=== PATIENT | female | born 1935 | race Caucasian/White ===

== ENCOUNTER 2019-03-17 17:45 | Emergency (ER) | payer MEDICARE, OTHER ==
[~2019-03-17] VITALS: Ht 175.3 cm; Wt 136.1 kg
[~2019-03-17 17:45] MED LIST: ALPR.25 PO; ALPR.5 PO; ASPI325 PO; ASPI81EC PO; Aspirin EC325 MG PO; BISO5 PO; BUSP15 PO; BUSP5 PO; CALCA500CH PO; CHOL10002 PO; COUGH MM; COUMADIN; CYCL10 PO; DIAZ2; DIAZ2 PO; FISH1000 PO; HYDACE10 PO; HYDACE5; HYDACE5 PO; HYDACE5325 PO; HYDMOR2 PO; HYDR1TAB94 PO; LEVOXYL PO; LEVSOD100 PO; LEVSOD200 PO; LOPE2C PO; LOSA25 PO; LOSA50 PO; MELO7.5 PO; METPRE4DP PO; MULVITMINF; NYST100P TOP; OMEPRAZOLE MAGN20 MG PO; OXYACE5T PO; POLY500 PO; PRED20 PO; PROP30DR BOTHEYES; Percocet 10-321 EACH PO; RABE20; Synthroid/Levo0.2 MG PO; THYR60; TOLT2 PO; TRIHYD253A PO; TRIHYD253B PO; TRIHYD5075 PO; VENL25; VENL37.5 PO; VENL75; VENL75ER PO; VIT D 3 PO; VITAMIN D-32000 UNIT PO; Venlafaxine HCl75 MG PO; WARF1 PO; WARF5 PO; XARELTO20 MG PO
[2019-03-17] MEDS ORDERED: Synthroid200 MCG PO (19:26)
[2019-03-17] MEDS ORDERED: TOLT2ER PO (19:27)
[2019-03-17] MEDS ORDERED: LOSA50 PO (19:27)
[2019-03-17] MEDS ORDERED: Zocor20 MG PO (19:27)
[2019-03-17] MEDS ORDERED: VENL75ER PO (19:27)
[2019-03-17] MEDS ORDERED: Aspir 8181 MG PO (19:28)
[2019-03-17] MEDS ORDERED: WARF1 PO (19:28)
[2019-03-17] MEDS ORDERED: B Complex-Foli1 EACH PO (19:28)
[2019-03-17] MEDS ORDERED: OMEPRAZOLE20 MG PO (19:28)
[2019-03-17] MEDS ORDERED: Thera Tears15 ML BOTHEYES (19:29)
[2019-03-17] MEDS ORDERED: ALBU90OI INH (20:03)
[2019-03-17] MEDS ORDERED: Prednisone20 MG PO (20:03)
== END 2019-03-17 20:17 | disposition home or self-care (01) ==
LOC: ER 17:45
DX: J20.9 Acute bronchitis, unspecified (principal); I48.91 Unspecified atrial fibrillation; K21.9 Gastro-esophageal reflux disease without esophagitis; I10 Essential (primary) hypertension; Z86.718 Personal history of other venous thrombosis and embolism; Z86.711 Personal history of pulmonary embolism; Z79.899 Other long term (current) drug therapy; Z79.01 Long term (current) use of anticoagulants; Z79.82 Long term (current) use of aspirin
CPT/HCPCS: 71046; 99283-25; J7512

== ENCOUNTER 2019-05-17 17:48 | Emergency (ER) | payer MEDICARE, OTHER ==
[~2019-05-17] VITALS: Ht 172.7 cm; Wt 136.1 kg
[~2019-05-17 17:48] MED LIST changes: +ALBU90OI INH; +Aspir 8181 MG PO; +B Complex-Foli1 EACH PO; +OMEPRAZOLE20 MG PO; +Prednisone20 MG PO; +Synthroid200 MCG PO; +TOLT2ER PO; +Thera Tears15 ML BOTHEYES; +Zocor20 MG PO
[2019-05-17] MEDS ORDERED: Percocet 5-3251 EACH PO (20:21)
== END 2019-05-17 20:37 | disposition home or self-care (01) ==
LOC: ER 17:48
DX: S82.51XA Displaced fracture of medial malleolus of right tibia, initial encounter for closed fracture (principal); S80.02XA Contusion of left knee, initial encounter; S80.01XA Contusion of right knee, initial encounter; K08.89 Other specified disorders of teeth and supporting structures; X58.XXXA Exposure to other specified factors, initial encounter
CPT/HCPCS: 73562-LT; 73562-RT; 73610; 99283-25; A9270

== ENCOUNTER 2019-06-21 18:45 | Emergency (ER) | payer MEDICARE, OTHER ==
[~2019-06-21] VITALS: Ht 172.7 cm; Wt 133.8 kg
[~2019-06-21 18:45] MED LIST changes: +Percocet 5-3251 EACH PO
[2019-06-21 19:40] LABS: BASOPHILS ABSOLUTE AUTO 0.03 K/mm3 (0.00-0.23); BASOPHILS PERCENT AUTO 0 % (0-2); EOSINOPHILS ABSOLUTE AUTO 0.01 K/mm3 (0.00-0.68); EOSINOPHILS PERCENT AUTO 0 % (0-6); Hematocrit 49.8 % (33.0-51.0); Hemoglobin 15.5 g/dL (11.5-16.0); IMMATURE GRAN ABSOLUTE AUTO 0.08 K/mm3 (0.00-0.10); IMMATURE GRAN PERCENT AUTO 1 % (0-1); LYMPHOCYTES ABSOLUTE AUTO 0.82 K/mm3 (0.84-5.20); LYMPHOCYTES PERCENT AUTO 6 % (21-46); MONOCYTES ABSOLUTE AUTO 1.06 K/mm3 (0.16-1.47); MONOCYTES PERCENT AUTO 7 % (4-13); Mean Corpuscular HGB 29.2 pg (26.0-34.0); Mean Corpuscular HGB Conc 31.1 g/dL (31.5-36.5); Mean Corpuscular Volume 94 fL (80-100); NEUTROPHILS ABSOLUTE AUTO 12.75 K/mm3 (1.96-9.15); NEUTROPHILS PERCENT AUTO 86 % (41-73); Platelet Count 224 K/mm3 (150-400); RDW Coefficient Variation 15.6 % (11.7-14.2); RDW Standard Deviation 54.5 fL (35.1-46.3); White Blood Cell Count 14.75 K/mm3 (4.00-11.30)
[2019-06-21 19:45] LABS: International Normalized Ratio 1.33
[2019-06-21 19:49] LABS: Source, Urine Clean Catch
[2019-06-21 19:56] LABS: Alanine Aminotransfer (ALT/SGP 20 U/L (12-78); Albumin, Blood 3.3 g/dL (3.4-5.0); Albumin/Globulin Ratio 0.8 (0.8-1.8); Alk Phos 89 U/L (50-136); Anion Gap 3 mmol/L (6-16); Aspartate Aminotrans (AST/SGOT 16 U/L (12-37); Bilirubin, Total 0.6 mg/dL (0.1-1.0); Blood Urea Nitrogen 30 mg/dL (8-24); Bun/Creatinine Ratio 33.1 (12.0-20.0); CO2, Blood 28 mmol/L (21-32); Calcium, Blood 9.5 mg/dL (8.5-10.1); Chloride, Blood 106 mmol/L (98-108); Creatinine, Blood 0.91 mg/dL (0.40-1.00); Globulin, Blood 3.9 g/dL (2.2-4.0); Glomerular Filtration Rate >60 (60-); Glucose, Blood 169 mg/dL (70-99); Potassium, Blood 3.7 mmol/L (3.5-5.5); Sodium, Blood 137 mmol/L (136-145); Total Protein, Blood 7.2 g/dL (6.4-8.2)
[2019-06-21 20:05] LABS: Bilirubin, Urine Neg (Neg); Blood, Urine 4+ (Neg); Glucose Qualitative, Urine Neg (Neg); Ketones, Urine 1+ (Neg); Leukocyte Esterase, Urine 1+ (Neg); Nitrite, Urine Pos (Neg); Protein, Urine Neg (Neg); Specific Gravity, Urine 1.025 (1.003-1.022); Urobilinogen, Urine NORM (Normal)
[2019-06-21 20:12] LABS: Appearance, Urine Hazy (Clear); Bacteria Many /hpf; Color, Urine Yellow (P-Yellow); Squamous Epithelial Cells Rare /hpf (Few)
== END 2019-06-22 00:22 | disposition short-term general hospital (02) ==
LOC: ER 18:45
PROVIDERS: Physician Assistant
DX: N13.6 Pyonephrosis (principal); I48.91 Unspecified atrial fibrillation; K21.9 Gastro-esophageal reflux disease without esophagitis; I10 Essential (primary) hypertension; G43.909 Migraine, unspecified, not intractable, without status migrainosus; G89.29 Other chronic pain; M54.9 Dorsalgia, unspecified; Z79.899 Other long term (current) drug therapy
CPT/HCPCS: 36415; 74177; 80053; 81001; 83605; 83690; 84145; 85025; 85610; 87077; 87086; 87186; 96374-59; 96375; 99285-25; J0696; J1885; J2405; J7030; Q9967

== ENCOUNTER → 2020-05-22 | Outpatient (CLI) | payer MEDICARE, OTHER ==
[2020-05-22 17:47] LABS: Creatinine, Urine Random 55.9 mg/dL (27.00-270.00)
[2020-05-22 17:50] LABS: Microalb/Creat Ratio UR, Rand 19.141 mg/g (0.000-30.000); Microalbumin, Random Urine 10.7 mg/L (0.000-20.000)
== END ==
LOC: LAB SHORT 10:00 → LAB 10:00 → LAB FUT 04-10 10:55
PROVIDERS: Internal Medicine
DX: E03.9 Hypothyroidism, unspecified (principal); I10 Essential (primary) hypertension; E11.9 Type 2 diabetes mellitus without complications; Z79.899 Other long term (current) drug therapy; I48.20 Chronic atrial fibrillation, unspecified; E78.5 Hyperlipidemia, unspecified
CPT/HCPCS: 82043; 82570

== ENCOUNTER 2021-07-28 07:48 | Inpatient (IN) | payer MEDICARE, OTHER ==
[~2021-07-28] VITALS: Ht 172.7 cm; Wt 127.4 kg
[2021-07-28 10:16] LABS: BASOPHILS ABSOLUTE AUTO 0.08 K/mm3 (0.00-0.23); BASOPHILS PERCENT AUTO 1 % (0-2); EOSINOPHILS ABSOLUTE AUTO 0.08 K/mm3 (0.00-0.68); EOSINOPHILS PERCENT AUTO 1 % (0-6); Hematocrit 44.5 % (33.0-51.0); Hemoglobin 14.1 g/dL (11.5-16.0); IMMATURE GRAN ABSOLUTE AUTO 0.04 K/mm3 (0.00-0.10); IMMATURE GRAN PERCENT AUTO 0 % (0-1); LYMPHOCYTES ABSOLUTE AUTO 1.18 K/mm3 (0.84-5.20); LYMPHOCYTES PERCENT AUTO 12 % (21-46); MONOCYTES ABSOLUTE AUTO 0.69 K/mm3 (0.16-1.47); MONOCYTES PERCENT AUTO 7 % (4-13); Mean Corpuscular HGB 29.6 pg (26.0-34.0); Mean Corpuscular HGB Conc 31.7 g/dL (31.5-36.5); Mean Corpuscular Volume 93 fL (80-100); Mean Platelet Volume 11.6 fL (9.1-12.4); NEUTROPHILS ABSOLUTE AUTO 7.73 K/mm3 (1.96-9.15); NEUTROPHILS PERCENT AUTO 79 % (41-73); Platelet Count 228 K/mm3 (150-400); RDW Coefficient Variation 14.2 % (11.7-14.2); RDW Standard Deviation 49.1 fL (35.1-46.3); Red Blood Cell Count 4.77 M/mm3 (3.80-5.20)
[2021-07-28 10:30] LABS: International Normalized Ratio 1.58; Prothrombin Time Results 16.1 Sec (9.7-11.5)
[2021-07-28 10:42] LABS: Anion Gap 4 mmol/L (6-16); Blood Urea Nitrogen 33 mg/dL (8-24); Bun/Creatinine Ratio 40.9 (12.0-20.0); CO2, Blood 29 mmol/L (21-32); Calcium, Blood 9.5 mg/dL (8.5-10.1); Chloride, Blood 108 mmol/L (98-108); Creatinine, Blood 0.81 mg/dL (0.40-1.00); Glomerular Filtration Rate >60 (60-); Glucose, Blood 150 mg/dL (70-99); Magnesium, Blood 1.9 mg/dL (1.6-2.4); Sodium, Blood 141 mmol/L (136-145)
--- NOTE | 2021-07-28 19:23 | NUR ---
assumed patient from concrete laborer at 1805. Patient "Kate" is alert and oriented x 4. She is laying flat on her back with a catheter to her right groin. She has two peripheral iv's bilat arms, 18g right ac, 22g right fa, both flushed well and temitope blood back easily. We started alteplase to her right grion catheter site that has two ports to it and each port has 0.5mg/hr or 12.5 ml/hr of the alteplase going into it. We also got heparin drip going into her 18g peripheral iv at 29.9ml or 18unit/hr. She was complaining of pain to her back and feet so she recieved 1mg of dilaudid iv. She did not have any pulses palpable or by doppler to either of her doral pedal or post tibial pulse sites bilaterally. Her feet or cold to touch and blueish in color from toes to her ankles. Son, Ruy is at her bedside. Report given to next shift to resume care at 191, which at bedside report a hematoma was found/and felt at fist size to her right mid-thigh. Nurses holding presser to hematoma site. Dr Carney was called and a message was left at [phone] to have him call icu back.
--- NOTE | 2021-07-28 20:00 | NUR ---
Assumed care. AOx4, answers all questions appropriatly. Son at bedside. During report, large hematoma was noted on the medial right thigh, round, firm and painful to palpate. Wilmar RN called and left messafe for Rommel before leaving shift, another call and message left. Deya RN held pressure for 30 min. and is on holding for another 30 as it started to increase in size again. Versed and another 1mg of diludid was given. Area marked for monitoring. Left femoral cath taped and length marked, no changes. Altpase infusing into both lumens at rate of 0.5. Heparin infusing at 18units/kg.hr into left AC. Bilateral feet are cold, unable to get pulses bilaterally with doppler. Toes are purple on the right with very decreased in sensation. Numbness noted on left foot as well. LS clear t/o. Sats >90% after placement of 2 liters due drop in sats after versed and diludid given. Paced rhythem on monitoring running in the 70's. Denies any chest pain. Abd soft, non-tender, BM reported yesterday. Denies any trouble with urination. Skin pale, with some redness under panus. Will continue to get ahold of Dr. Tay, monitor and assess. call light is in reach
--- NOTE | 2021-07-28 20:10 | NUR ---
Spoke to Dr. Carney regarding right medial thigh hematoma. States he will be in shortly to take a look at her.
--- NOTE | 2021-07-28 20:30 | NUR ---
Dr. Carney was her to see the patient. Orders to apply compression wrap with nellie wrap. He was able to find right pedal pulse. He reported that the artery all the way down her right leg was blocked. He was able to remove some of the blockage at least to her knee area. He plans on take her back in the morning to clear out tyhe rest. He states the color and touch of her right foot has improved. He is aware of the left leg absent pulse and cool to the touch. He ordered for increase of IVF to 125ml/hr and for bradley cath. Bradley placed and UA sent to lab.
[2021-07-28 20:49] LABS: Source, Urine Foley catheter
[2021-07-28 20:54] LABS: Bilirubin, Urine Neg (Neg); Blood, Urine 2+ (Neg); Color, Urine Yellow (P-Yellow); Glucose Qualitative, Urine Neg (Neg); Ketones, Urine 1+ (Neg); Leukocyte Esterase, Urine 1+ (Neg); Nitrite, Urine Pos (Neg); Protein, Urine 1+ (Neg); Urobilinogen, Urine NORM (Normal)
[2021-07-28 21:09] LABS: Appearance, Urine Hazy (Clear)
[2021-07-28 21:10] LABS: Amorphous Light (0-Heavy); Bacteria Mod /hpf; Red Blood Cells, Urine Rare /hpf (0-2); Squamous Epithelial Cells Rare /hpf (Few); White Blood Cells, Urine 0-2 /hpf (0-5)
--- NOTE | 2021-07-29 | NUR ---
Right leg hematoma is unchanged, we measured the circumference which has remained the same. Still reports pain in the left leg but the right has improved.
[2021-07-29 06:20] LABS: BASOPHILS ABSOLUTE AUTO 0.02 K/mm3 (0.00-0.23); BASOPHILS PERCENT AUTO 0 % (0-2); EOSINOPHILS PERCENT AUTO 0 % (0-6); Hematocrit 38.1 % (33.0-51.0); Hemoglobin 11.9 g/dL (11.5-16.0); IMMATURE GRAN ABSOLUTE AUTO 0.09 K/mm3 (0.00-0.10); IMMATURE GRAN PERCENT AUTO 1 % (0-1); LYMPHOCYTES ABSOLUTE AUTO 0.78 K/mm3 (0.84-5.20); LYMPHOCYTES PERCENT AUTO 5 % (21-46); MONOCYTES PERCENT AUTO 5 % (4-13); Mean Corpuscular HGB 29.5 pg (26.0-34.0); Mean Corpuscular HGB Conc 31.2 g/dL (31.5-36.5); Mean Corpuscular Volume 95 fL (80-100); Mean Platelet Volume 11.6 fL (9.1-12.4); NEUTROPHILS ABSOLUTE AUTO 13.15 K/mm3 (1.96-9.15); NEUTROPHILS PERCENT AUTO 89 % (41-73); Platelet Count 205 K/mm3 (150-400); RDW Coefficient Variation 14.2 % (11.7-14.2); RDW Standard Deviation 49.2 fL (35.1-46.3); Red Blood Cell Count 4.03 M/mm3 (3.80-5.20); White Blood Cell Count 14.74 K/mm3 (4.00-11.30)
--- NOTE | 2021-07-29 06:37 | NUR ---
SHIFT SUMMARY: AOX4, can be forgetful at times especially after diludid. Woke up confused twice tonight tearing off lines, but was easily re-oriented. Afebrile. Pain average 8-10 which started Bilaterally but has been mostly on the RLE. LS clearw t/o, was placed on 2L NC to keep sats >90's after diludid administration. Denied SOB. Vent. Paced on monitor rate 70's. BP soft t/o shift. Left femerol cath/shealth-dressings remained intact, no hematoma. No change in Cath length. Shealth infusing altpase x2 lumuns at rate of 0.5. Heperin infusing in left AC rate 18 units/kg/hr. Right medial thigh developed hematoma at start of shift. Compression intervention applied, she currently has nellie compression around thigh, site has remained unchanged since start. Measureing tape in place to monitor growth over nellie wrap. LLE-Absent pedal pulse, foot is cold, mottled, and she reports loss of sensation. RLE-pedal pulse with doppler, color has improved some but still purple on tips of toes, temp is slightly warmer then it was at start of shift. She reports increase in sensation to that foot. Dr. Tay was called at start of shift and informed of hematoma, he came and assessed, plan is to take her back today. He is aware of status of bilateral legs. Agarwal placed per order, UA sent and pending culture. Urine is birgit with low output of 375 this shift. IVF infusing at 125ml/hr. Redness noted to pannus/skin folds, powder applied. Will report to oncoming RN.
[2021-07-29 06:38] LABS: Alanine Aminotransfer (ALT/SGP 31 U/L (12-78); Albumin, Blood 2.6 g/dL (3.4-5.0); Albumin/Globulin Ratio 0.8 (0.8-1.8); Alk Phos 61 U/L (50-136); Anion Gap 7 mmol/L (6-16); Aspartate Aminotrans (AST/SGOT 30 U/L (12-37); Bilirubin, Total 0.4 mg/dL (0.1-1.0); Blood Urea Nitrogen 36 mg/dL (8-24); Bun/Creatinine Ratio 46.6 (12.0-20.0); CO2, Blood 24 mmol/L (21-32); Calcium, Blood 8.3 mg/dL (8.5-10.1); Chloride, Blood 109 mmol/L (98-108); Creatinine, Blood 0.77 mg/dL (0.40-1.00); Globulin, Blood 3.1 g/dL (2.2-4.0); Glomerular Filtration Rate >60 (60-); Glucose, Blood 202 mg/dL (70-99); Magnesium, Blood 1.7 mg/dL (1.6-2.4); Sodium, Blood 140 mmol/L (136-145); Total Protein, Blood 5.7 g/dL (6.4-8.2)
[2021-07-29 07:16] LABS: Prothrombin Time Results 20.1 Sec (9.7-11.5)
--- NOTE | 2021-07-29 08:48 | NUR ---
ASSUMED CARE REPORT FROM POLI SALOMON AT 0700. PT RESTING IN BED. WAKES c VERBAL STIMULI. A&OX3. FOLLOWS COMMANDS. REPORTS PAIN TO BLE, WORSE ON LEFT, 11/01. ART SHEATH IN PLACE TO LEFT GROIN. TPA GTT VIA SIDE PORT AND SHEATH AT 0.5 MG/HR. SCHEDULED TO BE D/C'D AT 1000. HEMATOMA TO RIGHT THIGH, CIRM 27 IN, UNCHANGED FROM NOC SHIFT. SOFT. LLE COOL. MOTTLED, >3 SEC CAP REFILL. PULSES UNABLE TO BE DOPPLERED. RLE PALE, COOL BUT WARMER THAN LLE. DT PULSE BY DOPPLER. HEPARIN GTT AT 15 UNITS/KG/HR VIA PIV. VSS. 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 WILL CONTINUE TO MONITOR.
--- NOTE | 2021-07-29 10:00 | NUR ---
Echocardiogram completed.
--- NOTE | 2021-07-29 17:22 | NUR ---
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 RETURNED c BILATERAL ART SHEATH TO GROIN. TPA INFUSING VIA BOTH SIDE PORTS AT 0.5 MG/HR FOR TOTAL OF 1 MG/HR. HEPARIN GTT PERIPHERALLY AT 500 UNITS/HR (10 ML/HR). PLAN TO RETURN TO CUTTING PRESSMAN TOMORROW AM. ECCHYMOSIS TO MEDIAL RIGHT THIGH, SOFT. COLOR TO BOTH LEGS IMPROVED. RIGHT LEG PINK, COOL, TIBAL PULSE BY DOPPLER. LEFT LEG DUSKY, CAP REFILL<3 SEC, UNABLE TO DOPPLER PULSES, ATTEMPTED BY DR PHILLIPS s SUCCESS. PT LETHARGIC AFTER RETURNING FROM LAB. WAKES c VERBAL STIMULI. QUICKLY RETURNS TO SLEEP. VSS. WILL CONTINUE TO MONITOR UNTIL REPORT TO ONCOMING NURSE.
--- NOTE | 2021-07-29 20:00 | NUR ---
Assumed Care. AOx3, Somnolent, tired. Will open eyes but it takes her a few minutes to realize where she is at and what is being asked of her. Follows directions but does get forgetful. Denies any pain or discomfort. Afebrile. LS clear t/o. On 2L NC with sats >92%. Paced on the monitor, rate in the 70's. BP is very soft MAP 50-60's. Denies any chest pain. Bilateral femoral shealths in place, dressings intact. Right shealth has light bloody drainage underneath, No heamtoma at the sites. Large hematoma on the right medial anterior thigh, area is currently soft, tender, placed measuring tape underneath, circumfrance 29 inches. Will continue to monitor site. Right foot cool to touch, pulse obtained via doppler. Left foot mottled but improved from last night, cool to touch, no pulses even with doppler. BTx4. Scant amount of dark yellow urine output. Redness in pannus cleansed and abd applied. Left AC IV bloody, heparin. Altplase infusing at 0.5 into bilateral shealths. NS gtt at 125mg. Will continue to monitor.
--- NOTE | 2021-07-29 20:30 | NUR ---
Pt hypotensive BP 79/37 MAP 51 and she continues to drop. Very pale, cool to the touch, tired and still not waking up fully. Hematoma on right anterior medial thigh measures 30 in circumfrance. Call was placed to both Dr. Carney and Dr. Escobedo informing of the situation. Orders obtained for stat H&H, and bolus NS 500ml. Repeat labs in 4 hours.
[2021-07-29 20:41] LABS: Hematocrit 31.4 % (33.0-51.0); Hemoglobin 9.7 g/dL (11.5-16.0)
--- NOTE | 2021-07-29 22:50 | NUR ---
1000ml bolus completed at 2145, no change in BP. Dr. Escobedo informed and 1 Unit of PRBC was ordered. While placing the patient on bedpan she had run 10 beat run of Vtach. While on the bedpan she started to mumble, when asked orientation questions, she was only able to state name, . She would repeat numbers for all other questions, not making sense. Dr. Escobedo was called again and informed of changes. Her thought was AMS could be r/t postive UTI. Informed blood will be started once new line was placed. Orders received for Mag, antibotics and re-draw of labs.
--- NOTE | 2021-07-29 23:30 | NUR ---
PG placed in the right upper arm. Blood, Mag, and Antibotic was all started. BP slightly improved but still on the soft side.
[2021-07-30 02:32] LABS: Hematocrit 31.8 % (33.0-51.0); Hemoglobin 9.9 g/dL (11.5-16.0)
[2021-07-30 04:36] LABS: BASOPHILS ABSOLUTE AUTO 0.05 K/mm3 (0.00-0.23); BASOPHILS PERCENT AUTO 0 % (0-2); EOSINOPHILS PERCENT AUTO 0 % (0-6); Hemoglobin 9.6 g/dL (11.5-16.0); IMMATURE GRAN ABSOLUTE AUTO 0.16 K/mm3 (0.00-0.10); IMMATURE GRAN PERCENT AUTO 1 % (0-1); LYMPHOCYTES ABSOLUTE AUTO 1.31 K/mm3 (0.84-5.20); LYMPHOCYTES PERCENT AUTO 6 % (21-46); MONOCYTES PERCENT AUTO 11 % (4-13); Mean Corpuscular HGB 30.1 pg (26.0-34.0); Mean Corpuscular Volume 94 fL (80-100); NEUTROPHILS PERCENT AUTO 82 % (41-73); Platelet Count 167 K/mm3 (150-400); RDW Coefficient Variation 14.4 % (11.7-14.2); RDW Standard Deviation 49.9 fL (35.1-46.3); Red Blood Cell Count 3.19 M/mm3 (3.80-5.20); White Blood Cell Count 23.12 K/mm3 (4.00-11.30)
[2021-07-30 04:38] LABS: Mean Platelet Volume 13.2 fL (9.1-12.4)
--- NOTE | 2021-07-30 05:23 | NUR ---
Hematoma to right medial anterior thigh has had a signficant increase in circumfance in the last hour. Patient was found with an explosive BM, during clean up the right thigh was very enlarged, firm from knee up to the grown area, possibly compressing the bladder as her urine output is poor. She has only had 125 of urine this shift. Pulses are still absent on the left foot, doppler only on the right. Area is very painful when manual compression is held. Dilaudid was given. 5lbs sandbag was placed with nellie wrap. Dr. Carney was notfied. Order to turn off all altplase and heparin and he will assess her when he comes in the morning. Charge nurse was notified. Gtts were stopped.
[2021-07-30 06:13] LABS: Bun/Creatinine Ratio 29.7 (12.0-20.0); Calcium, Blood 7.3 mg/dL (8.5-10.1); Creatinine, Blood 1.65 mg/dL (0.40-1.00)
--- NOTE | 2021-07-30 06:17 | NUR ---
Shift Summary: Pt has been somnolent entire shift. Change in mental status from AOx3 to confused t/o the night. Tends to repeat dates and numbers when every she is asked questions. Dr. Escobedo was informed of AMS, noted possible r/t UTI. Antibotics was started. Numbness and decrease sensation to BLE. LS clear t/o. on 2 L NC. Sats did drop down into the 80's when BP dropped. Cardiac status has been unstable entire shift. Started off with BP 80-90's at start of shift and continued to drop. MAP has averaged around the 58-68. She has been given 1 liter NS bolus, 1 unit of PRBC, and had repeat H&H. Bilateral Shealth sites have remained stable except some scant amount of bleeding at the right shealth site. Right leg Hematoma had significant increase in size very quickly around 0430, manual compression was applied and currently there is a 5lb sandbag wrapped tightly around the thigh and a 2lb bag remains at insertion site. Still able to get doppler pulses to the right foot medial side of ankle only. toes are slightly mottled, and cool. Decrease in urine output entire shift, Dr. Escobedo, Dr. Barnes both have been made aware as there is some concern that the hematoma is compressioning the bladder. Only 125cc out this shift. Dr. Carney has been informed several times of tonights events. Skin breakdown noted in pannus/skin fold and crease of coccyx. Dr. Barnes informed of the labs and changes to kidney function. Will report to [facility].
--- NOTE | 2021-07-30 07:45 | NUR ---
ASSUMED CARE BEDSIDE REPORT FROM POLI SALOMON AT 0700. PT RESTING IN BED. WAKES c VERBAL STIMULI. WHEN PT HEAVILY ENGAGED AND PAYING ATTENTION TO QUESTIONS, SHE IS ABLE TO ANSWER QUESTION APPROPRIATELY, A&O X3. SHE QUICKLY RETURNS TO SLEEP AND OCCASIONALLY ANSWERS QUESTIONS INAPPROPRIATELY. FOLLOWS SIMPLE COMMANDS. FOOD AND BEVERAGE ATTENDANT EQUAL, MAEW. NO FACIAL DROOP NOTED. LUNGS CLEAR, 2L VIA NC. SHALLOW RESP. PACED AT 70, BP LOW BUT MAPS>60. BILATERAL ART SHEATHS IN PLACE TO GROIN. L WNL. BRUISING NOTED TO MEDIAL RIGHT THIGH, SOFT, TENDER. NO HEMATOMA NOTED. ONLY PULSE BY DOPPLER, RIGHT TIBIAL. BLE SKIN PALE, COOL, CAP REFILL <3 SEC. IMPROVED SINCE YESTERDAY ASSESSMENT. GALLARDO PATENT, DRAINING SCANT JAROCHO URINE TO GRAVITY. WILL CONTINUE TO MONITOR.
[2021-07-30 07:49] LABS: Hematocrit 30.1 % (33.0-51.0); Hemoglobin 9.6 g/dL (11.5-16.0)
--- NOTE | 2021-07-30 09:41 | NUR ---
DR JONES ROUNDS DR JONES AT BEDSIDE. DISCUSSED HEMATOMA TO RIGHT THIGH, AMS. PLAN TO MONITOR HEMATOMA, REMAINS SOFT. CT ORDERED AND OBTAINED FOR AMS. PENDING ADDITIONAL ORDERS.
--- NOTE | 2021-07-30 12:06 | NUR ---
Spiritual Care - "Things We care to Know" At the request of attending nurse, interacted with the pts. son Ruy for the content of "Things We care to Know". Posted in ICU 15.
[2021-07-30 12:45] LABS: Anti-Xa UFH, PHA Monitoring <0.10 IU/mL; Prothrombin Time Results 40.7 Sec (9.7-11.5)
[2021-07-30 12:50] LABS: International Normalized Ratio 4.26
[2021-07-30 13:26] LABS: Alanine Aminotransfer (ALT/SGP 35 U/L (12-78); Albumin/Globulin Ratio 0.8 (0.8-1.8); Alk Phos 72 U/L (50-136); Aspartate Aminotrans (AST/SGOT 41 U/L (12-37); Bilirubin, Direct <0.1 mg/dL (0.0-0.3); Bilirubin, Indirect Unable to Calculate mg/dL (0.1-0.7); Bilirubin, Total 0.2 mg/dL (0.1-1.0); Globulin, Blood 2.6 g/dL (2.2-4.0); Total Protein, Blood 4.6 g/dL (6.4-8.2)
[2021-07-30 14:17] LABS: Prothrombin Time Results 43.6 Sec (9.7-11.5)
[2021-07-30 14:55] LABS: International Normalized Ratio 4.59
--- NOTE | 2021-07-30 15:32 | NUR ---
UPDATES BILATERAL ART SHEATHS D/C'D AT 1049, HEMOSTASIS AT 1115. NO BLEEDING, HEMATOMA NOTED. SOFT, NON TENDER. DRESSINGS INTACT. HEPARIN RESTARTED PER PHARMACY PROTOCOL. AT 1515, DISCOLORATION NOTED TO POSTERIOR LLE. CAP REFILL APPROX [address] JONES UPDATED ON PT CONDITION. WILL CONTINUE TO MONITOR.
--- NOTE | 2021-07-30 17:25 | NUR ---
SHIFT SUMMARY SHEATHS REMOVED THIS SHIFT s COMPLICATIONS, SEE PREVIOUS NOTE. HEMATOMA TO RIGHT THIGH UNCHANGED. HEPARIN RESTARTED 2 HR p SHEATH REMOVAL. INFUSING AT 18 UNITS/KG/HR. RIGHT LEG UNCHANGED, LEFT LEG DUSKY, CAP REFILL 5 SEC. DOPPLER TO RIGHT DT ONLY. POWERGLIDE PLACED TO RUE. RECTAL TUBE PLACED FOR LIQUID BROWN STOOLS. NEPHROLOGY CONSULTED THIS SHIFT. NS DECREASED TO 75 ML/HR. WILL CONTINUE TO MONITOR RENAL FUNCTION. GALLARDO PATENT, DRAINING TO GRAVITY. 25 ML JAROCHO URINE OUT THIS SHIFT. WILL CONTINUE TO MONITOR UNTIL REPORT TO ONCOMING NURSE.
[2021-07-30 18:49] LABS: Phosphorus, Blood 5.8 mg/dL (2.5-4.9)
--- NOTE | 2021-07-30 21:24 | NUR ---
ASSUMED CARE AT 1900 PT LAYING IN BED SLEEPING AT SHIFT CHANGE. PT IS ALER/ORIENTED X2, NOT TO TIME OR SITUATION; PT DOES NOT INTERACT UNLESS BEING DIRECTLY ASKED ORIENTATION QUESTIONS WITH HER EYES OPEN LOOKING AT RN; WHEN SHE ANSWERS QUESTIONS WHILE EYES CLOSED, THE ANSWERS ARE NOT CORRECT; DOES NOT STAY AWAKE LONG ENOUGH TO SAFELY GIVE PO MEDS. AFEBRILE. SPO2 CHALLENGING TO OBTAIN READINGS; RIGH NOW SPO2 >99% ON 2L NC. HR 70'S; PACED. SBP 70-100, MAP HIGH 50'S TO 70'S. RECTAL TUBE IN PLACE. GALLARDO IN PLACE AND DRAINING VERY LITTLE URINE. BLE COOL TO TOUCH, THE LLE IS MORE COOL THAN THE RIGHT. DOPPLER PULSE ONLY FOUND ON RT TIBIAL, NONE FOUND ON LLE. PREVIOUS HEMATOMA TO RT MEDIAL ANTERIOR THEIGH LARGE, AND DEEP PURPLE IN COLOR, SOFT, AND SENSATIVE TO PALPATE. PREVIOUS BILATERAL FEMERAL SITES SHOW NO SIGNS OF BLEEDING OR HEMATOMA. HEPARIN INFUSING AT 18UNITS/KG/HR. NS INFUSING AT 75ML/HR. SEE SHIFT ASSESSMENT FOR FULL ASSESSMENT.
--- NOTE | 2021-07-30 21:38 | NUR ---
UPDATE PHARMACY CALLED AND INSTRUCTED TO PLACE HEPARIN ON SB FOR ONE HOUR AND THEN RESUME HEPARIN AT 15U/KG/HR. HEPARIN ON SB AT 2029 AND RESTARTED AT 2129.
[2021-07-30 22:08] LABS: Source, Urine Foley catheter
[2021-07-30 22:13] LABS: Blood, Urine 3+ (Neg); Glucose Qualitative, Urine Neg (Neg); Ketones, Urine Neg (Neg); Leukocyte Esterase, Urine 3+ (Neg); Nitrite, Urine Neg (Neg); Protein, Urine 2+ (Neg); Specific Gravity, Urine 1.015 (1.003-1.022); Urobilinogen, Urine NORM (Normal)
[2021-07-30 22:20] LABS: Appearance, Urine Hazy (Clear); Bilirubin, Urine 2+ (Neg); Color, Urine Yellow (P-Yellow)
[2021-07-30 22:22] LABS: Bacteria Many /hpf; Squamous Epithelial Cells Not Seen /hpf (Few)
[2021-07-30 22:25] LABS: Renal Epithelial Few /hpf (0-Rare)
[2021-07-30 22:53] LABS: Eosinophils-Raw #,Urine 0
[2021-07-31 04:55] LABS: Anion Gap 10 mmol/L (6-16); Blood Urea Nitrogen 59 mg/dL (8-24); Bun/Creatinine Ratio 23.6 (12.0-20.0); CO2, Blood 19 mmol/L (21-32); Calcium, Blood 7.1 mg/dL (8.5-10.1); Chloride, Blood 114 mmol/L (98-108); Glomerular Filtration Rate 18 (60-); Glucose, Blood 166 mg/dL (70-99); Phosphorus, Blood 5.5 mg/dL (2.5-4.9); Potassium, Blood 4.2 mmol/L (3.5-5.5); Sodium, Blood 143 mmol/L (136-145)
--- NOTE | 2021-07-31 05:08 | NUR ---
UPDATE HEPARIN ANTI-XA LAB RESULTED CRITICAL HIGH >1.5; PHARMACY PROVIDED INSTRUCTION TO PLACE HEPARIN ON SB AND FOLLOW UP WITH ANOTHER HEPARIN ANTI-XA LAB DRAW AT 0630. HEPARIN PLACED ON SB AT 0455.
[2021-07-31 05:59] LABS: Hematocrit 22.7 % (33.0-51.0); Hemoglobin 7.3 g/dL (11.5-16.0); Platelet Count 144 K/mm3 (150-400)
[2021-07-31 06:01] LABS: Mean Platelet Volume 13.5 fL (9.1-12.4)
--- NOTE | 2021-07-31 06:28 | NUR ---
END OF SHIFT SUMMARY NO ACUTE EVENTS OVERNIGHT. PT SLEPT ON AND OFF. OCCATIONALLY SHE WOULD WAKE UP AND NOT KNOW WHERE SHE WAS BUT WAS ABLE TO BE REDIRECTED. PT ALERT/ORIENTED X2-3, NOT TO TIME, SITUATION, AND OCCATIONALLY LOCATION. DILAUDID GIVEN ONCE FOR LLE PAIN. SPO2 VERY CHALLENGING TO READ, WHEN AVAILABLE SPO2 >95% ON 2L NC. AFEBRILE. HR 70'S; PACED. SBP 70-140'S. MAP 50-100. RECTAL TUBE IN PLACE WITH MINIMAL OUTPUT. GALLARDO IN PLACE WITH 35ML URINE OUTPUT. RT MEDIAL ANTERIOR HEMATOMA CONT TO BE SOFT, TENDER, AND DEEP PURPLE. LLE MORE MOTTLED THAN PREVIOUSLY. HEPARIN ON SB, SEE PREVIOUS NOTE. NS INFUSING AT 75ML/HR. CALLED DR POMPA REGARDING AM HGB OF 7.3; NEW ORDERS PROVIDED TO REPEAT H&H IN 4HRS. WILL REPORT TO AM RN WHEN AVAILABLE.
[2021-07-31 08:11] LABS: COMPLEMENT C3, SERUM 74 mg/dL (82-167); COMPLEMENT C4, SERUM 9 mg/dL (12-38)
[2021-07-31 09:07] LABS: Hematocrit 22.9 % (33.0-51.0); Hemoglobin 7.4 g/dL (11.5-16.0)
[2021-07-31 09:47] LABS: Anti-Xa UFH, PHA Monitoring 0.47 IU/mL; Prothrombin Time Results 60.2 Sec (9.7-11.5)
--- NOTE | 2021-07-31 09:56 | NUR ---
DR JONES PT WITH INCREASING IN MOTTLING TO LEFT LOWER EXTREMITY FROM MID THIGH DOWN AND SKIN IS COOL TO TOUCH. UNABLE TO DOPPLER ANY PULSES TO LLE. DR JONES NOTIFIED AND CAME TO BEDSIDE TO SEE PT AND DISCUSS WITH PT SON AT BEDSIDE. HEPARIN GTT REMAINS ON STANDBY PER PHARMACY FOR CRITICALLY HIGH COAGS. WILL CONTINUE TO MONITOR.
[2021-07-31 09:58] LABS: International Normalized Ratio 6.48
[2021-07-31 10:16] LABS: Hematocrit 22.9 % (33.0-51.0); Hemoglobin 7.3 g/dL (11.5-16.0); Mean Corpuscular HGB 30.4 pg (26.0-34.0); Mean Corpuscular HGB Conc 31.9 g/dL (31.5-36.5); Mean Corpuscular Volume 95 fL (80-100); Mean Platelet Volume 12.8 fL (9.1-12.4); NRBC ABSOLUTE 0.04 K/mm3 (0.00-0.02); NRBC Auto 0.1 /100 WBC (0.0-0.2); Platelet Count 158 K/mm3 (150-400); RDW Coefficient Variation 14.8 % (11.7-14.2); RDW Standard Deviation 52.4 fL (35.1-46.3)
[2021-07-31 10:59] LABS: BAND PERCENT MAN 24 % (0-8); BASOPHILS PERCENT MAN 0 % (0-2); EOSINOPHILS ABSOLUTE MAN 0.26 K/mm3 (0.00-0.68); EOSINOPHILS PERCENT MAN 1 % (0-6); LYMPHOCYTES ABSOLUTE MAN 1.34 K/mm3 (0.84-5.20); LYMPHOCYTES PERCENT MAN 5 % (21-46); METAMYELOCYTE ABSOLUTE MAN 0.26 K/mm3 (0.00-0.00); METAMYELOCYTE PERCENT MAN 1 % (0-0); MONOCYTES ABSOLUTE MAN 1.34 K/mm3 (0.16-1.47); MONOCYTES PERCENT MAN 5 % (4-13); NEUTROPHILS ABSOLUTE MAN 23.58 K/mm3 (1.96-9.15); SEG NEUTROPHILS PERCENT MAN 64 % (41-73); TOTAL CELLS COUNTED 100
--- NOTE | 2021-07-31 12:07 | NUR ---
UPDATE DR JONES DISCUSSING PLAN OF CARE WITH DR RENAE AND RECOMMENDED TRANSFER FOR HIGHER LEVEL OF CARE. PT SON IS AGREEABLE. PENDING TRANSFER TO [facility] AT THIS TIME.
--- NOTE | 2021-07-31 17:26 | NUR ---
SHIFT SUMMARY PT REMAINS CONFUSED AND RESTLESS THIS SHIFT. PT REMAINS DROWSEY WITH SHORT PERIODS OF BEING MORE ALERT. PT PULLING AT LINES/TUBES AND NEEDS FREQUENT REDIRECTION. PT ON 2L O2 NC. VITAL SIGNS HAVE REMAINED STABLE THIS SHIFT. POWERGLIDE TO DAVEY REMAINS IN PLACE WITH NS INFUSING AT 75 ML/HR AND HEPARIN GTT AT 15 UNITS/KG/HR PER DR JONES. GALLARDO REMAINS IN PLACE WITH MINIMAL AMOUNT OF YELLOW URINE OUTPUT NOTED. RECTAL TUBE REMAINS IN PLACE WITH LIQUID BROWN OUTPUT NOTED. PT RIGHT AND LEFT FEMORAL ACCESS SITES REMAIN UNCHANGED. LEFT LOWER EXTREMITY REMAINS COOL AND MOTTLED FROM MID THIGH DOWN. PULSES REMAIN ABSENT. RLE PULSES PRESENT VIA DOPPLER. PT SON AT BEDSIDE THROUGHOUT THE SHIFT. PT REMAINS ON WAITING LIST FOR TRANFER TO [facility]. WILL CONTINUE TO MONITOR AND REPORT OFF TO ONCOMING RN.
[2021-07-31 18:25] LABS: Hematocrit 24.2 % (33.0-51.0)
[2021-08-01 01:25] LABS: Hematocrit 22.9 % (33.0-51.0); Hemoglobin 7.6 g/dL (11.5-16.0); Mean Corpuscular HGB 29.5 pg (26.0-34.0); Mean Corpuscular HGB Conc 33.2 g/dL (31.5-36.5); Mean Platelet Volume 12.2 fL (9.1-12.4); NRBC ABSOLUTE 0.38 K/mm3 (0.00-0.02); NRBC Auto 1.5 /100 WBC (0.0-0.2); Platelet Count 139 K/mm3 (150-400); RDW Coefficient Variation 18.6 % (11.7-14.2); RDW Standard Deviation 58.9 fL (35.1-46.3); Red Blood Cell Count 2.58 M/mm3 (3.80-5.20); White Blood Cell Count 25.73 K/mm3 (4.00-11.30)
[2021-08-01 01:26] LABS: Mean Corpuscular Volume 89 fL (80-100)
[2021-08-01 01:45] LABS: Albumin, Blood 2.1 g/dL (3.4-5.0); Albumin/Globulin Ratio 0.8 (0.8-1.8); Bilirubin, Total 0.2 mg/dL (0.1-1.0); Bun/Creatinine Ratio 24.9 (12.0-20.0); Calcium, Blood 7.1 mg/dL (8.5-10.1); Creatinine, Blood 2.65 mg/dL (0.40-1.00); Globulin, Blood 2.6 g/dL (2.2-4.0); Percent Saturation 6.1 % (15.0-50.0); Potassium, Blood 4.2 mmol/L (3.5-5.5); Total Protein, Blood 4.7 g/dL (6.4-8.2)
[2021-08-01 01:55] LABS: International Normalized Ratio 6.92
--- NOTE | 2021-08-01 04:11 | NUR ---
RESPIRATORY STATUS PATIENT LUNG SOUNDS BECOMING MORE COARSE AND AUDIBLE RATTLING PRESENT. ATTEMPTED TO PLACE CPAP WHICH PATIENT DID NOT TOLERATE WELL. PATIENT ATTEMPTED TO TAKE MASK OFF DESPTE MARCELLE SOFT WRIST RESTRAINTS IN PLACE. MASK REMOVED AND RATTLING WORSENED. CALL MADE TO DR. POMPA AND DISCUSSED POSSIBLE NEED FOR DIURETICS OR DIALYSIS. NO NEW ORDERS RECEIVED AT THIS TIME, PLAN FOR NEPHROLOGY TO ADDRESS THIS TODAY ON DAY SHIFT D/T HIGH LIKELIHOOD OF DIALYSIS.
--- NOTE | 2021-08-01 04:51 | NUR ---
UPDATE RESPIRATORY STATUS RESPIRATORY STATUS BEGAN WORSENING WITH RATTLING INCREASING. CALL MADE TO DR. POMPA AND ORDERS RECEIVED TO STOP NS INF AND CALL DR. JIMENES FOR FURTHER ORDERS. CALLED DR. JIMENES AND NOTIFIED OF STATUS AND LAB THIS AM. ORDERS RECEIVED FOR A ONE TIME DOSE OF LASIX 100MG IV TO SEE RESPONSE-IF NO RESPONSE THAN POSSIBILITY OF DIALYSIS CATHETER PLACEMENT TODAY.
--- NOTE | 2021-08-01 05:37 | NUR ---
SHIFT SUMMARY PATIENT RESPIRATORY STATUS DECLINED THIS MORNING-SEE NOTES ON RESPIRATORY STATUS. LASIX 100MG IV X [address] JIMENES AND NS @ 75ML/HR DC'D PER DR. POMPA. PATIENT PULLED OUT POWERGLIDE AT BEGINNING OF SHIFT-NEW POWERGLIDE PLACED AND PATIENT PLACED IN RESTRAINTS FOR SAFETY AND PREVENTION OF PULLING OUT NEW LINES. HEPARIN DECREASED TO 13 UNITS/KG/HR, BUT CONTINUED RUNNING PER DR. JONES ORDERS. RECTAL TUBE PULLED OUT BY PATIENT DURING REPOSITIONING-NEW RECTAL TUBE PLACED WHICH HAD NO OUTPUT NOTED IN BAG-LIQUID STOOL IN TUBING. GALLARDO PATENT AND DRAINED 200ML DARK YELLOW CLOUDY URINE TO GRAVITY DURING SHIFT. LLE REMAINS W/O PULSES, COOL TO TOUCH, MOTTLED FROM KNEE DOWN. RT TIBIAL PULSE TO DOPPLER AND RT PEDAL ABSENT. PATIENT REPORTS PAIN IN MARCELLE FEET AND LLE. NO OTHER CHANGES DURING SHIFT.
--- NOTE | 2021-08-01 17:41 | NUR ---
SHIFT SUMMARY: PT RESTING QUIETLY WITH PERIODS OF RESTLESNESS THROUGHOUT THIS SHIFT. BILATERAL SOFT WRIST RESTRAINTS REMAIN IN PLACE. PT ON 2L NC. VITAL SIGNS STABLE. POWERGLIDE REMAINS IN THE DAVEY INFUSING HEPARIN AT 11 UNITS/KH/HR. GALLARDO IS IN PLACE DRAINING DARK YELLOW URINE TO GRAVITY. RECTAL TUBE HAD MINIMAL OUTPUT. LLE REMAINS COOL, MOTTLED THIGH DOWN. NO PULSES ARE PRESENT. RLE TIBIAL PULSE IS PRESENT VIA DOPPLER. PT REMAINS ON WAITING LIST FOR TRANSER TO [facility].
[2021-08-02 03:28] LABS: Hematocrit 22.2 % (33.0-51.0); Hemoglobin 7.2 g/dL (11.5-16.0); Mean Corpuscular HGB 29.4 pg (26.0-34.0); Mean Corpuscular HGB Conc 32.4 g/dL (31.5-36.5); Mean Corpuscular Volume 91 fL (80-100); Mean Platelet Volume 11.9 fL (9.1-12.4); NRBC ABSOLUTE 0.44 K/mm3 (0.00-0.02); NRBC Auto 1.7 /100 WBC (0.0-0.2); Platelet Count 153 K/mm3 (150-400); RDW Coefficient Variation 18.4 % (11.7-14.2); RDW Standard Deviation 60.3 fL (35.1-46.3); Red Blood Cell Count 2.45 M/mm3 (3.80-5.20); White Blood Cell Count 25.26 K/mm3 (4.00-11.30)
[2021-08-02 03:45] LABS: Albumin, Blood 2.2 g/dL (3.4-5.0); Albumin/Globulin Ratio 0.8 (0.8-1.8); Bilirubin, Total 0.3 mg/dL (0.1-1.0); Bun/Creatinine Ratio 26.6 (12.0-20.0); Calcium, Blood 7.7 mg/dL (8.5-10.1); Creatinine, Blood 2.67 mg/dL (0.40-1.00); Globulin, Blood 2.7 g/dL (2.2-4.0); Magnesium, Blood 1.8 mg/dL (1.6-2.4); Phosphorus, Blood 5.6 mg/dL (2.5-4.9); Potassium, Blood 3.7 mmol/L (3.5-5.5); Total Protein, Blood 4.9 g/dL (6.4-8.2)
[2021-08-02 04:11] LABS: Prothrombin Time Results 45.5 Sec (9.7-11.5)
[2021-08-02 04:12] LABS: International Normalized Ratio 4.8
--- NOTE | 2021-08-02 05:51 | NUR ---
SHIFT SUMMARY PATIENT HAD TOTAL URINE OUTPUT OF 950ML, NO STOOL OUT OF RECTAL TUBE-RED TINGED LIQUID. CPAP USED T/O NIGHT SUCCESSFULLY. PG KINKED AND NO LONGER PATENT-REMOVED AND REPLACED WITH 18G PIV IN LT AC. SON CALLED LAST NIGHT AND UPDATED ON PATIENT STATUS-PLANS TO COME IN TO VISIT TODAY. NO OTHER CHANGES DURING SHIFT.
--- NOTE | 2021-08-02 10:11 | NUR ---
DR JIMENES VIDEO CALL WITH DR JIMENES DONE AT PT BEDSIDE. REVIEWED PT CONDITION AND MEDICATIONS. DISCUSSED PLAN OF CARE AND PROLONGED WAIT TIME FOR BED AT [facility] FOR TRANSFER. DR JIMENES ALSO DISCUSSED PLAN OF CARE WITH PT SON AT BEDSIDE. NEW ORDERS RECIEVED. WILL CONTINUE TO MONITOR.
--- NOTE | 2021-08-02 11:34 | NUR ---
TRANSFER NOTE: PT TRANSFERRED TO [facility] @1130. REPORT GIVEN TO TIA RN. ALL MEDICATIONS AND PATIENT BELONGING WERE SENT WITH PT.
--- NOTE | 2021-08-02 11:35 | NUR ---
ASSUMPTION OF CARE Pt received from ICU. No changes noted from AM assessment. Will continue to monitor.
--- NOTE | 2021-08-02 13:31 | NUR ---
ASSUMPTION OF CARE Pt received from ICU. No changes noted from AM assessment. Will continue to monitor.
--- NOTE | 2021-08-02 16:51 | NUR ---
SHIFT SUMMARY Pt remains confused. VSS. Afebrile. S/s of pain noted- Roxanol x1, adequate control of pain per pt behavior. FC maintained with AUO. Rectal tube maintained- no output. Heparin gtt continued- no s/s of bleeding noted. LLE remains cold, blue, with no pulse. RLE is pale, pulse present, evaluated via doppler. Pending [facility] transfer. Frequent rounds to ensure pt safety. Pt repositioned q2hrs and pressure points offloaded to prevent pressure ulcers. Pt in no apparent distress at this time. Will continue to monitor until transfer of care to oncoming RN.
[2021-08-02 19:37] LABS: Anti-Xa UFH, PHA Monitoring 0.71 IU/mL
--- NOTE | 2021-08-02 20:35 | NUR ---
CRITICAL LAB LAB VOCERED TO NOTIFY OF CRITICAL LAB: APTT 139.0. CALL PLACED TO CHANNING IN PHARMACY. CHANNING WITH ORDERS TO DECREASE RATE OF HEPARIN, SEE EMAR.
[2021-08-03 03:13] LABS: Albumin, Blood 2.1 g/dL (3.4-5.0); Anion Gap 11 mmol/L (6-16); Blood Urea Nitrogen 66 mg/dL (8-24); Bun/Creatinine Ratio 30.1 (12.0-20.0); CO2, Blood 21 mmol/L (21-32); Calcium, Blood 7.9 mg/dL (8.5-10.1); Chloride, Blood 118 mmol/L (98-108); Creatinine, Blood 2.19 mg/dL (0.40-1.00); Glomerular Filtration Rate 21 (60-); Glucose, Blood 165 mg/dL (70-99); Phosphorus, Blood 4.8 mg/dL (2.5-4.9); Potassium, Blood 3.8 mmol/L (3.5-5.5); Sodium, Blood 150 mmol/L (136-145)
[2021-08-03 03:31] LABS: Anti-Xa UFH, PHA Monitoring 0.83 IU/mL
--- NOTE | 2021-08-03 05:56 | NUR ---
SHIFT SUMMARY PT LETHARGIC, AWAKES TO NAME, VERBAL STIMULI. SEE SHIFT ASSESSMENT. GALLARDO CAHTETER DRAINING TO GRAVITY. RECTAL TUBE IN PLACE, MINIMAL OUTPUT. PT REPOSITIONED, SKIN CHECKED ON BACKSIDE AND PICTURES TAKEN, SEE PICS IN CHART. UNABLE TO LOCATE PULSES ON LEFT FOOT. R FOOT PULSE LOCATED WITH DOPPLER, MARKED WITH SKIN MARKER. FLUIDS INFUSING PER EMAR. HEPARIN INFUSING PER EMAR, DECREASED RATE BY PHARMACY X2. CALL LIGHT IN REACH.
[2021-08-03 09:56] LABS: Influenza A, PCR NEGATIVE (NEGATIVE); Influenza B, PCR NEGATIVE (NEGATIVE); Resp Syncytial Virus, PCR NEGATIVE (NEGATIVE); SARS-Cov-2 (COVID-19) PCR, MMC NEGATIVE (NEGATIVE)
[2021-08-03 10:21] LABS: Hematocrit 21.7 % (33.0-51.0); Hemoglobin 6.8 g/dL (11.5-16.0); Mean Platelet Volume 11.8 fL (9.1-12.4); Platelet Count 161 K/mm3 (150-400)
[2021-08-03 11:11] LABS: Anti-Xa UFH, PHA Monitoring 0.72 IU/mL
--- NOTE | 2021-08-03 11:25 | NUR ---
MD NOTIFICATION MD notified regarding Hgb=6.8, IVF currently on hold d/t lack of IV acces. ordered 1 unit PRBC to be infused once new line established.
--- NOTE | 2021-08-03 14:31 | NUR ---
TRANSFER OF CARE Pt transferred to [facility]. Report called to ellen Kumar RN. No changes noted from AM assessment. VSS. Afebrile. No s/s of pain. FC maintained. Rectal tube remains in place. Heparin gtt continued. 1 unit PRBC transfusing. All belongings sent with patient. Ruy (son) aware of transfer and updated regarding POC. Pt in no apparent distress at this time.
--- NOTE | 2021-08-03 16:50 | NUR ---
Received referral from nurse patient care associate (Alfonso Marcano) on 07/30/2021. Patient was to discharge with orders for home health and elected [facility]. Met with patient's sons (Dwayne Canela and Ronny Canela) regarding the above. Patient's sons state that patient may transfer to out of area hospital. Discussed with patient's sons that if she is transferred out of area, the discharging hospital would need to make the referral for home health. Patient's sons verbalized understanding. Review of patient's records this evening indicates that patient was transferred to [facility] in [place], [place]. No further interventions required. Ashli La Referral Liaison
== END 2021-08-03 13:48 | disposition short-term general hospital (02) | DRG 270 ==
LOC: ER 07:48 → ICUW 16:42 → PCU 08-02 11:21
PROVIDERS: Family Medicine; Internal Medicine; Internal Medicine Nephrology; Nurse Practitioner Acute Care; Radiology Diagnostic Radiology; Student in an Organized Health Care Education/Training Program; ADMIT Internal Medicine
PROC: 04CC3ZZ Extirpation of Matter from Right Common Iliac Artery, Percutaneous Approach (ICD-10-PCS; principal; 2021-07-28)
PROC: 04CK3ZZ Extirpation of Matter from Right Femoral Artery, Percutaneous Approach (ICD-10-PCS; 2021-07-28)
PROC: 04CP3ZZ Extirpation of Matter from Right Anterior Tibial Artery, Percutaneous Approach (ICD-10-PCS; 2021-07-28)
PROC: 04CM3ZZ Extirpation of Matter from Right Popliteal Artery, Percutaneous Approach (ICD-10-PCS; 2021-07-28)
PROC: 3E05317 Introduction of Other Thrombolytic into Peripheral Artery, Percutaneous Approach (ICD-10-PCS; 2021-07-28)
PROC: 3E03317 Introduction of Other Thrombolytic into Peripheral Vein, Percutaneous Approach (ICD-10-PCS; 2021-07-28)
DX: I70.223 Atherosclerosis of native arteries of extremities with rest pain, bilateral legs (principal); G93.41 Metabolic encephalopathy; N17.9 Acute kidney failure, unspecified; Z68.41 Body mass index [BMI] 40.0-44.9, adult; N39.0 Urinary tract infection, site not specified; I50.32 Chronic diastolic (congestive) heart failure; E87.0 Hyperosmolality and hypernatremia; D62 Acute posthemorrhagic anemia; Z66 Do not resuscitate; D63.8 Anemia in other chronic diseases classified elsewhere; Z20.822 Contact with and (suspected) exposure to COVID-19; E03.9 Hypothyroidism, unspecified; F32.A Depression, unspecified; G89.29 Other chronic pain; I48.0 Paroxysmal atrial fibrillation; K21.9 Gastro-esophageal reflux disease without esophagitis; I11.0 Hypertensive heart disease with heart failure; E78.5 Hyperlipidemia, unspecified; I77.1 Stricture of artery; E66.01 Morbid (severe) obesity due to excess calories; B96.20 Unspecified Escherichia coli [E. coli] as the cause of diseases classified elsewhere; Z99.3 Dependence on wheelchair; Z86.711 Personal history of pulmonary embolism; Z86.718 Personal history of other venous thrombosis and embolism; Z95.0 Presence of cardiac pacemaker; Z90.49 Acquired absence of other specified parts of digestive tract; Z90.89 Acquired absence of other organs; Z90.710 Acquired absence of both cervix and uterus; Z98.890 Other specified postprocedural states; Z79.01 Long term (current) use of anticoagulants; Z79.82 Long term (current) use of aspirin; Z79.899 Other long term (current) drug therapy
CPT/HCPCS: 0241U; 36415; 36430; 37184; 37185; 37211; 51702; 70450; 75625; 75716; 75774; 76770; 76937; 80048; 80053; 80069; 80076; 81001; 82550; 82570; 82728; 83540; 83550; 83615; 83735; 84100; 84156; 85014; 85018; 85025; 85027; 85049; 85347; 85384; 85520; 85610; 85730; 86160; 86850; 86900; 86901; 86923; 87077; 87086; 87186; 87205; 93306; 93925; 93970; 94660; 94762; 96374; 96375; 99152; 99153; 99285-25; A9270; C1751; C1757; C1769; C1887; C1894; J0360; J0696; J1170; J1644; J1940; J2250; J2997; J3010; J3475; J7030; J7040; J7050; J7070; P9016; Q9967